=== PATIENT | female | born 1985 | race Caucasian/White ===

== ENCOUNTER 2023-11-28 08:09 | Outpatient (AMB) | payer OTHER, SELFPAY ==
--- NOTE | 2023-11-28 08:14 | AM.OFFWIN_ITS ---
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 Pt wears contacts lens daily. Denies fevers, chills, nausea, vomiting or Cough. No recent sick contacts. Denies headaches, dizziness, vision changes. She also c/o bilateral ear blockage. [facility] Social History Patient Tobacco Use Status: Never used Tobacco Review of Systems Const All systems reviewed & are unremarkable except as noted in HPI and below Physical Exam Vital Signs: Last Vital Signs Temp 98.6 F 11/28/23 08:21 Pulse 88 11/28/23 08:21 BP 122/76 11/28/23 08:21 Pulse Ox 98 11/28/23 08:21 Oxygen Delivery Method Room Air 11/28/23 08:21 BMI result Body Mass Index 32.6 Const General: healthy appearing, comfortable and no acute distress HEENT Head: Yes normocephalic Ears: external ears normal and TM's normal bilaterally General nose exam: Abnormal mucous membranes and turbinates present boggy and erythematous Face and sinus: Yes sinuses nontender Mouth: moist mucous membranes Throat: Yes uvula midline Eyes Other: Mild redness left eye, dry no drainage. Visual Buckner: normal visual buckner by confrontation Periorbital: periorbital findings normal Eyelids: Yes eyelids normal Pupils: Equal, round and reactive pupils present EOM: EOMs intact bilaterally Resp Effort & Inspection: normal respiratory effort and able to speak in complete sentences Auscultation: clear to auscultation bilaterally Cardio Rate: regular rate Rhythm: regular rhythm Neuro Cranial nerves: Yes Equal, round and reactive pupils present Assessment & Plan Assessment & Plan (1) Allergic conjunctivitis: Code(s): H10.10 - Acute atopic conjunctivitis, unspecified eye Qualifiers: Laterality: left Qualified Code(s): H10.12 - Acute atopic conjunctivitis, left eye Plan: - Allergic vs Bacterial vs viral conjuc - Will Tx with Zaditor, if not better in a day RTC for Abx - Sudafed OTC for nasal congestion. Medications: New ketotifen fumarate 0.025%(0.035%) (Zaditor) administer at least 8 hours apart 1 drp ophthalmic-Left BID 5 mL 0RF H10.12 - Acute atopic conjunctivitis, left eye Coding Level of Care Code New Pt Level 3 (61581) Diagnoses Allergic conjunctivitis of left eye H10.12 Laterality: left Time Spent (min) 10
[2023-11-28 08:21] VITALS: BP 122/76; PULSE 88; TEMP 37; O2SAT 98; BMI 32.6
== END 2023-11-28 08:42 | disposition home or self-care (01) ==
PROVIDERS: Visit Provider Nurse Practitioner Family
DX: H10.12 Acute atopic conjunctivitis, left eye (principal)
CPT/HCPCS: 99203

== ENCOUNTER 2023-12-17 08:09 | Outpatient (AMB) | payer OTHER, SELFPAY ==
--- NOTE | 2023-12-17 08:29 | MHC.OFFWIV ---
Intake Vital Signs 12/17/23 08:30 Height 5 ft 4 in BP 122/80 Blood Pressure Location Lt brachial Position Sitting Pulse 82 Pulse Source Pulse Oximeter Temp 98.1 F Temp Source Oral Pulse Oximetry (%) 99 Oxygen Delivery Method Room Air Intake Visit Reasons: EP ? Bronchitis Intake Note: pt was here 2 weeks ago and was told it was sinus and last week she did a tel-a-doc and was given Augementin and has finished that and is still up coughing and congestion and has not gotten any better Patient Tobacco Use Status: Never used Tobacco Allergies No Known Allergies Allergy (Verified 12/17/23 08:33) Do you need a note to return to daycare/school/sports/work: No HPI HPI Comments History of Present Illness Details Patient presents to the walk in for 3 weeks cough, sinus congestion. Was seen here 2 weeks ago and told to take decongestants Last week had a tele-visit and was given Augmentin Reports completed the course of Augmentin and has been taking Mucinex but off persists Cough is worse at night making her not sleep, nonproductive Denies fever, chest pain, shortness of breath, palpitations, syncope, weakness Denies headache, ear pain, sore throat. PFSH Social History Patient Tobacco Use Status: Never used Tobacco Review of Systems Const All systems reviewed & are unremarkable except as noted in HPI and below Physical Exam Vital Signs: Last Vital Signs Temp 98.1 F 12/17/23 08:30 Pulse 82 12/17/23 08:30 BP 122/80 12/17/23 08:30 Pulse Ox 99 12/17/23 08:30 Oxygen Delivery Method Room Air 12/17/23 08:30 General: awake, alert, oriented. Answers questions appropriately. Fully engaged in examination. Skin: warm, dry, intact HEENT: TMs intact bilaterally, no redness. Posterior pharynx without erythema or exudate. Sclera without icterus or injection. Cardiac: External chest normal in appearance. Respiratory: + dry cough. LSCTAB. Abdomen: without gross distension. Neurological: Oriented to person, place, time and situation. Thought process intact. Psychiatric: Appropriate mood and affect. Good judgment and insight. Assessment & Plan Assessment & Plan (1) URI (upper respiratory infection): Code(s): J06.9 - Acute upper respiratory infection, unspecified Plan URI, no abx warranted. Benzonatate 100mg po bid as needed Prednisone 40 mg p.o. daily x5 days Rest, drink plenty of fluids, tylenol or motrin as needed. Recommend taking OTC nasal decongestants Follow up with pcp or in clinic for any new or worsening symptoms. Go to ER for shortness of breath, chest pain, palpitations, weakness, dizziness. Medications: New prednisone 40 mg (2 x 20 mg) PO DAILY 5 days 10 tabs 0RF benzonatate 100 mg PO BID PRN 20 caps 0RF cough Coding Level of Care Code Est Pt Level 3 (44152) Diagnoses URI (upper respiratory infection) J06.9
[2023-12-17 08:30] VITALS: BP 122/80; PULSE 82; TEMP 36.7; O2SAT 99
== END 2023-12-17 09:02 | disposition home or self-care (01) ==
PROVIDERS: PCP Internal Medicine; Visit Provider Registered Nurse Emergency
DX: J06.9 Acute upper respiratory infection, unspecified (principal)
CPT/HCPCS: 99213

== ENCOUNTER 2024-10-13 14:30 | Outpatient (AMB) | payer OTHER, SELFPAY ==
--- NOTE | 2024-10-13 14:34 | MHC.OFFWIV ---
Intake Vital Signs 10/13/24 14:37 Height 54 ft Weight 202 lb BMI 0.3 BP 142/90 H Blood Pressure Location Lt brachial Position Sitting Pulse 83 Pulse Source Pulse Oximeter Temp 97.5 F Temp Source Oral Pulse Oximetry (%) 99 Oxygen Delivery Method Room Air Intake Visit Reasons: EP severe pain on LT foot Intake Note: Pt is here today c/o Lt foot severe pain: no recent injury noted Patient Tobacco Use Status: Never used Tobacco Allergies No Known Allergies Allergy (Verified 10/13/24 14:35) HPI HPI Comments History of Present Illness Details Patient is a 39yo F who presents to office with L foot pain Ongoing since last night No trauma or injury but was stomping feet at [employer] game yesterday Starts on arch of foot and radiates medially and superiorly over the top of foot She denies similar symptoms in past Hx of broken bone in this foot when she was 11 (5th metatarsal bone) She tried elevation, ice, and ibuprofen No tingling or numbness No high heels recently; she usually wears flats and sneakers No pain scale given PFSH Social History Patient Tobacco Use Status: Never used Tobacco Review of Systems Const Denies chills and Denies fever(s) Musc Reports joint swelling (L foot), Reports stiffness and Denies tingling Skin/Breast Denies erythema Neuro Denies tingling and Denies paresthesias Physical Exam Vital Signs: Last Vital Signs Temp 97.5 F 10/13/24 14:37 Pulse 83 10/13/24 14:37 BP 142/90 H 10/13/24 14:37 Pulse Ox 99 10/13/24 14:37 Oxygen Delivery Method Room Air 10/13/24 14:37 BMI result Body Mass Index 0.3 General: Non-toxic, NAD. Speaking full sentences. Skin: Warm dry throughout. Minimal edema dorsal aspect L foot without erythema or ecchymosis noted Eye: EOMI Respiratory: No respiratory distress Cardiac: DP pulse intact. No calf tenderness or pitting edema MSK:LLE: No ttp L medial/lateral malleoli, calcaneus, achilles, digits. + ttp distal arch and dorsal aspect L foot near distal 2-4 metatarsal bones. + full plantar flexion without pain. + pain with dorsal flexion RLE: No ttp, + Full ROM Neurology: Alert. No aphasia or facial droop. Gait without abnormality Psych: Good mood and affect Assessment & Plan Assessment & Plan (1) Foot pain, left: Code(s): M79.672 - Pain in left foot Plan: Patient seen and evaluated. Xray L foot: i viewed and saw no fx DIscussed with pt and she agrees with plan to ice, rest, elevate, brace prn and ibuprofen prn as directed Antony rest for 1-2 weeks and follow up with podiatry if pain is continual Patient gave verbal understanding and had no additional questions or concerns at time of discharge All questions answered Orders: Orders XR foot LT min 3V Today M79.672 - Pain in left foot Coding Level of Care Code Est Pt Level 3 (98100) Diagnoses Foot pain, left M79.672
[2024-10-13 14:37] VITALS: BP 142/90; PULSE 83; TEMP 36.4; O2SAT 99
== END 2024-10-13 15:08 | disposition home or self-care (01) ==
PROVIDERS: PCP Internal Medicine; Visit Provider Physician Assistant
DX: M79.672 Pain in left foot (principal)

== ENCOUNTER 2024-10-13 14:30 | Outpatient (REF) | payer OTHER, SELFPAY ==
--- NOTE | ~2024-10-13 | XR_ITS ---
EXAMINATION: XR FOOT 3 OR MORE VIEWS LEFT HISTORY: M79.672 - Pain in left foot COMPARISON: There are no prior studies available for comparison. FINDINGS: Three views of the left foot are submitted. Osseous mineralization is normal. There is no fracture or dislocation. The joint spaces are preserved. The soft tissues are unremarkable. XR/XR foot LT min 3V IMPRESSION: Unremarkable examination of the left foot. Electronically signed by: Shola Levi MD 10/13/2024 03:27 PM EST
== END 2024-10-13 14:31 | disposition home or self-care (01) ==
LOC: HO.HMGCX 14:30
PROVIDERS: PCP Internal Medicine; Visit Provider Physician Assistant
DX: M79.672 Pain in left foot (principal)
CPT/HCPCS: 73630

== ENCOUNTER → 2024-10-13 14:53 | Outpatient (BNV) | payer OTHER, SELFPAY | PROVIDERS: PCP Internal Medicine; Visit Provider Radiology Diagnostic Radiology | DX: M79.672 Pain in left foot (principal) | CPT/HCPCS: 73630 ==